=== PATIENT | male | born 1975 ===

== ENCOUNTER 2021-07-23 07:43 | Outpatient (CLI) | payer OTHER, SELFPAY ==
--- NOTE | 2021-08-06 14:38 | WPDSLEEPSTUD ---
Sleep Study Date of Study: 07/23/21 Ordering Provider: Perez Claros MD Interpreting Physician: Massiel Nunez MD Sleep Study Type: Split Polysomnogram Height: 1.85 m Weight: 149.685 kg Body Mass Index: 43.5 Neck Circumference (inches): 18.5 [place]: 7 Reason for Sleep Study History of obstructive sleep apnea previously treated with CPAP for 20 years, increased symptoms, non restorative sleep, daytime sleepiness and problems with his machine. Sleep History Luis Daniel Loo is a 45 yo man with obstructive sleep apnea on treatment for over 20 years. During the last year, he has had increased non restorative sleep, excessive daytime sleepiness and mechanical issues with his CPAP. The machine is almost 20 years old. He does not feel rested on waking, and says that his machine is not as effective as it was initially. He has difficulty falling asleep and difficulty waking in the morning. He rarely wakes at night with heartburn, belching or coughing. He constantly snores loudly and has witnessed apnea. He does not have trouble sleeping with a cold, nor does he wake up gasping for breath at night. He constantly has breathing problems at night observed by others, He rarely sweats excessively at night, and rarely notices his heart pounding at night. He rarely falls asleep involuntarily, never falls asleep while driving. He does not have loss of muscle tone with strong emotion. He does not have vivid dreamlike scenes on waking or falling asleep. He does not have nightmares. He rarely remembers his dreams. He occasionally has racing thoughts. He occasionally feels sad, depressed and anxious. He does not notice parts of his body jerking. He occasionally kicks at night. He rarely has crawling or aching feelings in his legs or any leg pain at night. He has no jaw pain the morning. He does not grind his teeth. He frequently is bothered by pain in the day. He always wakes up feeling stiff in the morning. He has insomnia. Normal bedtime is 4 am, sometimes taking hours to fall asleep. He wakes multiple times at night to urinate. 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 He does not take naps. Naps roque not leave him feeling refreshed. He is drowsy for 2 hours after waking. He feels better in the evening compared to other times of day. He is always sleepy in the day, and he always has difficulties with his job due to excessive sleepiness. He does not take naps. A short nap is not refreshing. He is drowsy after waking for 2 hours. Over the last year he has gained 30 lb. He has a medical comorbidity of depression. Habits: Tobacco: 1 can a day. Caffeine: 8-10 Diet Cokes per day. No alcohol or recreational drugs. [facility] Past Medical History Medical History (Updated 08/13/21 @ 12:48 by Massiel Nunez MD) Allergies Arthritis Asthma Depression Obstructive sleep apnea Family History Family History (Updated 08/13/21 @ 11:44 by Massiel Nunez MD) Other Adopted Social History Social History (Updated 08/10/21 @ 18:05 by Massiel Nunez MD) Smoking status: Never smoker Alcohol intake: never Medications Medications: Sildenafil citrate Diclofenac Wixela Oxcarbazepine Montelukast sodium Meloxicam Flonase Dextromethorphan and guaifenesin Bupropion HCl Albuterol sulfate HFA Sleep Procedure This test was performed using the [employer] multiple channel system including EOG, EEG, submental EMG, EKG, nasal and oral airflow using thermistors and nasal pressure sensors, chest and abdominal belts for body position data, and pulse oximetry. Video monitoring was also performed. The study was scored using CMS guidelines. The patient self-administered at the start of the study Advil PM, 2 tablets 200 mg each. After the baseline portion the patient met criteria for a titration with an apnea hypopnea index of 110.1. CPAP was started using a medium Resp[employer]ics Comfort Gel mask with humidity. Initial pressure was 5 cm increased to 7 cm, 9 cm, 13 cm,
[2021-08-13 11:06] VITALS: BMI 43.5
== END 2021-07-24 07:16 | disposition home or self-care (01) ==
LOC: ANHCSM 07:45
PROVIDERS: PCP Nurse Practitioner Family; Visit Provider Otolaryngology
DX: G47.33 Obstructive sleep apnea (adult) (pediatric) (principal)
CPT/HCPCS: 95811